=== PATIENT | male | born 1950 | race Caucasian/White ===

== ENCOUNTER 2016-10-27 13:00 | Inpatient (IN) | payer OTHER ==
[~2016-10-27] VITALS: Ht 170.2 cm; Wt 64.0 kg
--- NOTE | ~2016-10-27 | DS ---
Unit #: [id number] #: [id number] Patient: JOHANNA AARON [id number] [address] [address] [id number] I MR#: [id number] NAME: JOHANNA AARON. ROOM: [facility] Age: 66 Sex: M Admission Date: 10/27/2016 : 1950 Discharge Date: 10/29/2016 Attending Physician: Jono Walker M.D. Primary Care Physician: [facility]. DISCHARGE SUMMARY DISCHARGE DIAGNOSES 1. Systemic inflammatory response syndrome. 2. Hypotension. 3. Urinary retention. 4. Acute kidney injury. 5. Metabolic acidosis. HOSPITAL COURSE The patient is a 66-year-old male who [facility] to a syncopal episode. Apparently the patient had been at work on the day of presentation and had a fainting spell and his blood pressure was noted to be 68 systolic. He was brought to the emergency room and was noted to have a creatinine of 10, potassium of 5.4. The patient underwent CT of the abdomen which failed to reveal any significant abnormality so he then had an ultrasound of the kidneys bilaterally which showed abnormal distention of the bladder. Calculated volume was 1.5 L. Therefore, it was felt that the likely cause of the patient's acute kidney injury was obstruction. Coude catheter was placed and patient diuresed well. His creatinine fell from 10.4 the first day to 4.5 to 1.2 on the day of discharge. Discussion with the patient reveals that he had actually ran out of his Flomax, had not been taking it. He states that this was because he felt like followup physician visits were unnecessary so he wasn't making them. At this time, I am going to be discharging the patient home with a catheter in place and instructions to follow up with his urologist, Dr. Ho. DISCHARGE MEDICATIONS 1. Flomax 0.4 mg at bedtime. 2. Gabapentin 800 mg p.o. t.i.d. 3. Glucophage 1000 mg p.o. daily. 4. Zofran 4 mg p.o. b.i.d. as needed. 5. Coreg 12.5 mg p.o. b.i.d. 6. Pramipexole 0.125 mg p.o. in the evening. 7. Hydrochlorothiazide 25 mg daily. 8. Lipitor 80 mg daily. 9. Zestril 20 mg daily. 10. Advil 600 mg p.o. b.i.d. as needed for fever or mild pain. 11. Protonix 40 mg daily. 12. Amaryl 2 mg daily. FOLLOWUP Unit #: [id number] #: [id number] Patient: JOHANNA AARON As mentioned above, the patient will follow up with Dr. Dillon Ho in clinic this week. Dictated by... Matt Boudreaux M.D. JOSÉ ANTONIO/gorge TD: 10/30/2016 06:00 JOB #: [id number] CC: Dillon Ho M.D. DISCHARGE SUMMARY Page 1 of 1 X Matt Boudreaux MD X DISCHARGE SUMMARY
--- NOTE | ~2016-10-27 | HP ---
Unit #: [id number] #: [id number] Patient: JOHANNA AARON [id number] [address] [address] [id number] I MR#: [id number] NAME: JOHANNA AARON. ROOM: 06693 Age: 66 Sex: M Admission Date: 10/27/2016 : 1950 Attending Physician: Radha Walker M.D. Primary Care Physician: [facility], [facility]. HISTORY AND PHYSICAL CHIEF COMPLAINT A syncopal episode. HISTORY OF PRESENT ILLNESS The patient is a 66-year-old male with a history of coronary artery disease, hypertension, hyperlipidemia, diabetes, BPH, nephrolithiasis, peptic ulcer disease and alcohol abuse, brought to the emergency room with the recurrent falls. The patient was at work this morning and had a fainting episode with the systolic blood pressure in the range of 68. The patient was brought to the emergency room for the above reasons. The patient states that the patient was feeling sick for the last few days and was seen at the [facility] for the nausea and vomiting. The patient was given the antinausea medication but patient has a poor intake associated with the nausea and vomiting and not able to hold down anything. The patient denies taking any new medications. The patient was found to be in acute kidney injury with a creatinine of 10 and potassium of 5.4 and is being admitted for the above reasons. The patient required 2 L of the fluid and the low blood pressure responded to the IV fluids and patient did not receive any pressors in the emergency room. PAST MEDICAL HISTORY 1. History of altered mental status attributed to an intentional methadone overdose. 2. Coronary artery disease. 3. Hypertension. 4. Hyperlipidemia. 5. Chronic pain. 6. Diabetes. 7. BPH. 8. Nephrolithiasis. 9. Peptic ulcer disease. PAST SURGICAL HISTORY 1. Hernia repair. 2. Appendectomy. 3. Cardiac catheterization. SOCIAL HISTORY The patient is a daily drinker. He drinks four to five 12 ounce beers daily. He denies tobacco. He works at [employer]. FAMILY HISTORY Notable for prostate cancer Unit #: [id number] #: [id number] Patient: JOHANNA AARON ALLERGIES No known drug allergies. HOME MEDICATIONS Patient is on Glucophage, Protonix, Coreg, Amaryl, hydrochlorothiazide, lisinopril, gabapentin, Advil, Zofran, Lipitor. REVIEW OF SYMPTOMS Positive for headache. Positive for nausea and vomiting. Negative for chest pain. Negative for shortness of breath. Other systems reviewed and are none. PHYSICAL EXAMINATION GENERAL APPEARANCE: On examination patient is lying on a bed, not in acute distress. VITAL SIGNS: Temperature is 98.3, pulse 64, respiratory rate 16, blood pressure 71/45, sating 99% at room air. HEENT: Head atraumatic and normocephalic. Pupils equal, round and reacting to light and accommodation. Dry mucous membrane. NECK: Supple. LUNGS: Decreased air entry at the bases. HEART: Regular rate and rhythm. ABDOMEN: Soft, positive bowel sounds. EXTREMITIES: No cyanosis. No clubbing. NEUROLOGIC: Awake and alert. DIAGNOSTIC STUDIES LABORATORY DATA: Glucose 227, WBC 11.7, hemoglobin 12.5, hematocrit 37, neutrophils 81.2, troponin less than 0.05, lactic acid is 1.1, INR is 1.1, sodium 129, potassium 5.4, chloride 86, bicarb 19, glucose 216, BUN 140, creatinine 10.4, calcium 8.9, AST 8, ALT 10, albumin 4.8. IMAGING: CT of the abdomen shows no acute intraabdominal pathology. Chest x-ray is negative. ASSESSMENT 1. Syncopal episode. 2. Acute kidney injury. 3. Hyponatremia. 4. Hypokalemia. PLAN Plan to admit the patient to the inpatient with the telemetry. Patient will have a renal consult for acute kidney injury, hyperkalemia and hyponatremia. Continue with the low dose sliding scale and Accu-Cheks a.c. and h.s. and repeat the labs again in the morning and check the UA with the culture and urine toxicology and avoid the nephrotoxic agents and hold the Glucophage and the Amaryl and further recommendations will follow. Dictated by Radha Walker M.D. Unit #: [id number] #: [id number] Patient: JOHANNA AARON SHAE/marito TD: 10/27/2016 16:57 JOB #: [id number] HISTORY AND PHYSICAL Page 1 of 1 X RADHA WALKER MD HISTORY AND PHYSICAL
--- NOTE | ~2016-10-27 | EKG ---
PATIENT: JOHANNA AARON UNIT #: [id number] Ventricular Rate: 57 BPM Atrial Rate: 57 BPM P-R Interval: 206 ms QRS Duration: 102 ms Q-T Interval: 454 ms QTC Calculation(Bezet): 441 ms P [place]: 72 degrees Calculated R [place]: 62 degrees Calculated T [place]: 31 degrees Diagnosis Line: Sinus bradycardia Diagnosis Line: Otherwise normal ECG Diagnosis Line: When compared with ECG of 19-NOV-2015 12:58, Diagnosis Line: Vent. rate has decreased BY 37 BPM Diagnosis Line: Confirmed by AYSE PHILLIPS MD ([id number]) on 11/01/2016 Diagnosis Line: 7:32:44 AM INTERPRETING MD: JACQUELINE JONES
--- NOTE | ~2016-10-27 | CO ---
Unit #: [id number] #: [id number] Patient: JOHANNA AARON [id number] [place] [address] [facility]. [place], [place] [address] [id number] I MR#: [id number] NAME: JOHANNA AARON. ROOM: 554 Age: 66 Sex: M Admission Date: 10/27/2016 : 1950 Attending Physician: Jono Walker M.D. Primary Care Physician: [facility]. CONSULTATION REPORT Patient of Dr. Walker. REASON FOR CONSULTATION Increased creatinine. HISTORY OF PRESENT ILLNESS Mr. Aaron is a 66-year-old male, who presented to the emergency department after graying out and falling. He had been feeling unwell for a few days predominantly with episodic lower abdominal pain progressing to nausea with vomiting. There was no bloody vomitus. He does have a history of peptic ulcer disease, but has not had recent symptoms related to that and denies diarrhea or bloody bowel movements. He has been dry mouth and thirsty. He has not been taking p.o. fluid or food well. Appetite and taste changes have been noted. He has been having regular unsteadiness when up, but not completely passing out at any time. However, he has been stumbling about in the past few days. He denies use of nonsteroidals, but his home medicine list includes Advil/Motrin (he specifically denied taking Advil, Aleve, or ibuprofen on questioning). He says urine output was normal up until yesterday morning when he first arrived at work, he passed urine as he usually does; however, he did not pass any urine after that until presenting to hospital. He denies sensation of suprapubic discomfort or sensation of incomplete emptying or difficulty emptying his bladder and denies urgency. He is aware of prior prostate disease, has seen the urologist in the past and has in the past been treated with Flomax, but has not been on it recently. He denies dysuria or hematuria. He denies fevers or chills. HOME MEDICATIONS Include gabapentin, Advil, Motrin, Zofran, Lipitor, pramipexole, carvedilol, Amaryl, hydrochlorothiazide, Zestril, Glucophage, and Protonix. He denies red urine or unusual muscle pain with his Lipitor. PAST MEDICAL HISTORY Notable for hypertension, diabetes mellitus, history of TIA, history of peptic ulcer disease, and history of renal stones with no recent symptomatic stones. He is aware of BPH as well. He denies history of ND. There is chart history of coronary disease. (In 2004, cardiac catheterization showed normal coronaries with mild to moderate global hypokinesis. He had subsequent presentation for chest pain in 2011. In 2012, LVEF was 50% to 55%. In 2011, exercise Cardiolite was negative for stress-induced ischemia, but did demonstrate a small fixed defect inferiorly. He again had normal Cardiolite stress test in 2014 with ejection fraction of 57%; fixed inferior apical defect was again seen). Unit #: [id number] #: [id number] Patient: JOHANNA AARON SOCIAL HISTORY He denies smoking. He does drink alcohol. He chews tobacco daily. He still works at [employer] and was working as recently as yesterday. FAMILY HISTORY Negative for end-stage renal disease. No other kidney disease as far as he is aware. REVIEW OF SYSTEMS Twelve component complete system review was additionally positive for recent sneezing, which he describes allergies. He has not had increased shortness of breath or productive cough. Remainder of complete system review is negative or noncontributory except as noted above. PHYSICAL EXAMINATION VITAL SIGNS: Includes blood pressure in the ER earlier on presentation of 71/45, and now 95 to 109 over 49 to 60 with IV fluids. GENERAL: He is awake, alert, and fluently interactive locally. Conjunctiva are pink. There is no bloody discharge. Oral mucous membranes are mildly dry. NECK: Reveals no thyromegaly and normal jugular venous pressure. No cervical, supraclavicular, or axillary adenopathy is notable. SKIN: Warm and dry with markedly diminished turgor. LUNGS: Clear with moderate equal air movement. HEART: Reveals no rub. No S3. ABDOMEN: Soft and nontender with no masses. Had no organomegaly. : Includes no CVA tenderness. No bladder distention. Olivo catheter is in place draining clear iris urine. EXTREMITIES: Reveal IV fluids infusing. There is no pitting pretibial edema. VASCULAR: Includes no flank bruits. Right pedal pulses are normal. NEUROLOGIC: Includes no asterixis. DIAGNOSTIC STUDIES LABORATORY RESULTS: Includes urinalysis showing 1+ protein, trace blood, negative leukocytes, and no bacteria. Urine sodium and creatinine were ordered and are pending. Admission BUN was 140 with creatinine 10.4 after IV fluids and placement of Olivo catheter (bladder scan was ordered and done showing 1 L of retained urine). BUN is 108; creatinine is 4.5; potassium of 5.4 on admission, has improved to 4.4; CO2 of 19 on admission, has improved to 22; calcium is 8.4. White count 6000, hemoglobin 12, platelet count 282,000. IMAGING STUDIES: CT scan shows no hydronephrosis, it did show nonobstructing renal stones. ASSESSMENT 1. Acute kidney injury. Obstructive from bladder outlet obstruction plus prerenal with hypotension, volume depletion, and impaired renal compensation on JOCELYN inhibitor and apparently nonsteroidal. He is on Lipitor, but ordered CPK not mentioned above was 95 excluding rhabdomyolysis. There is no evidence of renal inflammation on urinalysis. He does have stones, but they are nonobstructive and not related to the current acute kidney injury. 2. Hyperkalemia secondary to decreased GFR and JOCELYN inhibitor. 3. Benign prostatic hypertrophy with acute bladder outlet obstruction. 4. Nephrolithiasis, nonobstructive. Unit #: [id number] #: [id number] Patient: JOHANNA AARON 5. Hypertension, over controlled with volume depletion and antihypertensives abruptly being held. 6. Diabetes mellitus. Holding Glucophage in the presence of decreased GFR. 7. History of transient ischemic attack. 8. History of peptic ulcer disease. PLAN Holding lisinopril/hydrochlorothiazide and Lipitor. Would avoid Advil and all other nonsteroidals in the future. Would avoid diuretics for now. No objection to rechallenge with JOCELYN or ARB after recovery of renal function at baseline. Have restarted Flomax. Agree with Urology consultation. Olivo catheter for now. He is on diet for hyperkalemia and we may be able to remove that after further recovery of GFR with Olivo catheter drainage. Thank you for letting me to see Mr. Aaron. Dictated by... Rc Zamora M.D. REL/modl TD: 10/29/2016 00:07 JOB #: [id number] CONSULTATION REPORT Page 1 of 1 X Rc Zamora MD CONSULTATION REPORT
--- NOTE | ~2016-10-27 | CR72 ---
[facility] A Service of [facility] & [facility] RADIOLOGY TEXT RESULTS PATIENT: JOHANNA AARON LOCATION: [place] [address] : [birth year] UNIT #: [id number] AGE: [address]: RADHA WALKER MD SEX: M ORDER DR: [id number] [facility] [address]. [place], [place] [address] [id number] I MR#: [id number] Acc #: [id number] NAME: JOHANNA AARON : 1950 SEX: M STUDY DATE/TIME: 10/27/2016 14:03 UNIT: [facility] ROOM: [facility] STUDY DESCRIPTION: CR Chest Single View Portable Attending Physician: Radha Walker M.D. Ordering Physician: Santy Ko M.D. Primary Care Physician: [facility], [facility]. MEDICAL IMAGING REPORT This report is preliminary unless electronic signature is present EXAM Portable chest x-ray, 10/27/2016. HISTORY Syncope. Irregular heartbeat, TIA, heart cath, hypotension, syncope. REPORT AP radiograph of the chest is presented. COMPARISON 11/27/2015. FINDINGS Heart is normal in size. The lungs are well inflated. No acute pulmonary disease, pleural effusion or pneumothorax. No suspicious nodule. Stable calcified granuloma left lung base. Degenerative changes in the spine. No acute-appearing bony abnormality. Dictated by... Bam Leiva M.D. THIS IS AN ELECTRONICALLY VERIFIED REPORT Bam Leiva M.D. at 10/27/2016 10:46 PM Brenden TD: 10/27/2016 20:35 JOB #: [id number] MEDICAL IMAGING REPORT Page 1 of 1 COPY
--- NOTE | ~2016-10-27 | US77 ---
[facility] A Service of [facility] & [facility] RADIOLOGY TEXT RESULTS PATIENT: JOHANNA AARON LOCATION: [facility] [id number] : [birth year] UNIT #: [id number] AGE: [address]: RADHA WALKER MD SEX: M ORDER DR: [id number] [facility] [address] [place], [place] [address] [id number] I MR#: [id number] Acc #: [id number] NAME: JOHANNA AARON. : 1950 SEX: M STUDY DATE/TIME: 10/27/2016 18:38 UNIT: [facility] ROOM: [facility] STUDY DESCRIPTION: US Kidney Bilateral Complete Attending Physician: Radha Walker M.D. Ordering Physician: Last Hernandez M.D. [facility] IMAGING REPORT This report is preliminary unless electronic signature is present EXAM Ultrasound kidney bilateral complete, low urine output, 1 day duration. Acute kidney injury. TECHNIQUE Real-time ultrasonography bilateral kidneys performed. COMPARISON Comparison to a CT examination from same date. FINDINGS Right kidney measures 9.89 cm in greatest length. There is no hydronephrosis or nephrolithiasis. No cystic or solid mass lesion and no perinephric fluid collection. Visualized adjacent liver unremarkable. The left kidney measures 10.69 cm in greatest length. There is no hydronephrosis. The tiny sand-like nonobstructing calculi in the mid left kidney seen on today's CT examination not evident on ultrasound. No cystic or solid mass lesion and no perinephric fluid collection. The urinary bladder is distended. It measures up to 17 cm in greatest diameter. Calculated prevoid volume of 1.49 liters. I see no obstructing process. The bladder appears more distended than on the earlier CT examination when it measured up to 10.7 cm in greatest length. The appearance could be physiologic in nature. Correlate with any clinical indications of urinary retention. Consider postvoid imaging for further assessment. Consider decompression with Olivo catheter if patient unable to void to completion. IMPRESSION 1. Bilateral kidneys normal in appearance on ultrasound. The tiny nonobstructing calculi seen on today's CT examination in the mid left kidney are not apparent on ultrasound. 2. Abnormal distension of the urinary bladder. It measures up to 17 cm [facility] A Service of [facility] RADIOLOGY TEXT RESULTS PATIENT: JOHANNA AARON LOCATION: [place] [address] : [birth year] UNIT #: [id number] AGE: [address]: RADHA WALKER MD SEX: M ORDER DR: in greatest diameter and the calculated volume is 1.49 L. I see no obstructing process. The bladder is more distended than on earlier CT examination. No focal bladder wall abnormality is seen. Please correlate with any clinical indications of urinary retention. Consider further evaluation with postvoid imaging. If the patient is not able to void to completion, consider bladder decompression with Olivo catheter. Dictated by... Bam Leiva M.D. THIS IS AN ELECTRONICALLY VERIFIED REPORT Bam Leiva M.D. at 10/28/2016 2:37 PM JUDD/grace TD: 10/28/2016 14:27 JOB #: [id number] MEDICAL IMAGING REPORT Page 1 of 1 COPY
--- NOTE | ~2016-10-27 | CT4 ---
[facility] A Service of [facility] & [facility] RADIOLOGY TEXT RESULTS PATIENT: JOHANNA AARON LOCATION: [place] [address] : [birth year] UNIT #: [id number] AGE: [address]: RADHA WALKER MD SEX: M ORDER DR: [id number] [facility] [address]. [place], [place] [address] [id number] I MR#: [id number] Acc #: [id number] NAME: JOHANNA AARON : 1950 SEX: M STUDY DATE/TIME: UNIT: [facility] ROOM: [facility] STUDY DESCRIPTION: CT Abd and Pelv Wo Cont Attending Physician: Radha Walker M.D. Ordering Physician: Santy Ko M.D. Primary Care Physician: [facility] IMAGING REPORT This report is preliminary unless electronic signature is present EXAM CT abdomen and pelvis without contrast 10/27/2016 1342 hours HISTORY 66-year-old man with history of hypertension and diabetes complaining of abdominal pain today with hypotension. Lower abdominal tenderness on exam today. COMPARISON CT abdomen 05/27/2014 TECHNIQUE Helical noncontrasted images were obtained from the lung bases through the pubic symphysis. No oral or intravenous contrast was administered. Sagittal and coronal reconstructions were performed. Total exam DLP 744 mGy - cm. This CT exam was performed with one or more of the following radiation dose reduction techniques: automatic exposure control, adjustment of mA and/or kV according to patient size, and iterative reconstruction. FINDINGS Images through the lung bases are clear of acute densities. There is a calcified granuloma in the lingular segment of the left upper lobe without change. There is no pleural effusion. The distal esophagus is normal. Noncontrasted images through the abdomen demonstrate a normal appearance to the liver, spleen, pancreas. The gallbladder is mildly distended. There may be 2 tiny stones in the neck of the gallbladder but there is no gallbladder wall thickening or bile duct dilatation. The adrenal glands are normal. The kidneys demonstrate no mass or obstruction. There are punctate hyperdensities in the posterior mid-left kidney likely nonobstructing stones. There is no ureterectasis or ureteral calculus. There is atherosclerotic calcification of the abdominal aorta which is STS[facility] A Service of [facility] & [facility] RADIOLOGY TEXT RESULTS PATIENT: JOHANNA AARON LOCATION: [facility] [phone] : [birth year] UNIT #: [id number] AGE: [address]: RADHA WALKER MD SEX: M ORDER DR: normal in caliber. There is fluid and debris distending the stomach. No gastric wall thickening is seen. The small bowel is unopacified but normal in appearance. The terminal ileum is normal. The appendix is absent. There is dense material within the contents of the cecum and ascending colon most likely related to medication ingestion. There is no definite colonic wall thickening. The distal colon demonstrates a few diverticula in the descending colon. The rectosigmoid colon is decompressed and nonobstructed. Lumbar spine is normally aligned with bridging osteophytes throughout. There is disc height loss at L5-S1. Findings appears similar to 2015. IMPRESSION 1. No acute abnormalities in the abdomen or pelvis. There may be 2 tiny stones in the gallbladder similar to prior study but no gallbladder wall thickening is seen. There is no bile duct dilatation. Stomach is distended with fluid and debris. No definite wall thickening is seen. 2. There is postop and ectopy change. There is no small bowel obstruction or colonic obstruction. There is very dense material within the cecum and ascending colon perhaps related to medication ingestion. 3. Punctate nonobstructing stones in the mid pole left kidney. No ureteral calculus seen. 4. The bladder is normal. 5. Stable degenerative changes of the lumbar spine as compared to CT 05/27/2014. Dictated by... Molly Nicole M.D. THIS IS AN ELECTRONICALLY VERIFIED REPORT Molly Nicole M.D. at 10/27/2016 9:21 PM SMM/josette TD: 10/27/2016 19:44 JOB #: [id number] MEDICAL IMAGING REPORT Page 1 of 1 COPY
[~2016-10-27 13:00] MED LIST: ACETAMINOPHEN650 M3 PO; AGGRENOX PO; AGGRENOX1 CAP PO; AMARYL PO; AMARYL2 MG PO; ASPIRIN81 MG PO; ATORVASTATIN CA80 MG PO; B COMPLEX1 TAB PO; CARVEDILOL6.25 MG PO; CEPHALEXIN500 M1 PO; CIPRO PO; CLOPIDOGREL75 MG PO; COREG PO; COREG3.125 MG PO; COREG6.25 MG PO; DIFLUCAN200 MG PO; FLOMAX0.4 M1 PO; FLOMAX0.4 MG; FLOMAX0.4 MG PO; GABAPENTIN800 MG PO; GLIMEPIRIDE2 MG PO; GLUCOTROL; HYDROCODON-ACE1 EAC4 PO; HYDROCODONE-APA1 T30; HYDROCODONE/APAP PO; IBUPROFEN100 MG PO; JANUMET 50-1,1 UDTAB PO; JANUVIA PO; KADIAN PO; KADIAN50 MG PO; LANTUS SOLOSTAR3 ML SQ; LEVAQUIN PO; LIORESAL10 MG PO; LIPITOR; LIPITOR20 MG PO; LIPITOR40 MG PO; LIPITOR80 MG PO; LISINOPRIL PO; LISINOPRIL10 MG PO; LISINOPRIL20 MG PO; LORTAB 10-5001 EACH PO; METFORMIN HCL500 M1 PO; METFORMIN PO; MIRAPEX PO; MIRAPEX0.25 MG PO; MOBIC PO; MORPHINE SULFAT15 M3 PO; MORPHINE SULFAT20 MG PO; MULTI-VITAMIN1 EAC1 PO; NEURONTIN PO; NEURONTIN800 MG PO; OXYCODONE HCL30 MG PO; OXYCONTIN30 MG PO; PATIENT'S PHARMACY; PLAVIX PO; REGLAN PO; REGLAN10 MG PO; SKELAXIN PO; TRAMADOL HCL50 M2 PO; TRILIPIX135 MG PO; TRILIPIX45 MG PO; VICODIN PO; ZOCOR PO
[2016-10-27 13:42] LABS: BASOPHIL% 0.3 % (0-2.5); EOSINOPHIL# 0.1 X10e3 (0-0.7); EOSINOPHIL% 0.9 % (0.0-7.0); HEMOGLOBIN 12.5 gm/dL (13.0-16.0); LYMPHOCYTE# 1.2 X10e3 (1.0-3.5); LYMPHOCYTE% 10.4 % (17.0-45.0); MEAN CELL VOLUME 89.8 FL (83-96); MEAN CORPUSCULAR HEMOGLOBIN 30.3 PG (28-34); MEAN CORPUSCULAR HGB CONC 33.8 g/dL (30-36); MEAN PLATELET VOLUME 9.4 FL (6.5-11.5); MONOCYTE# 0.8 X10e3 (0-1.0); MONOCYTE% 7.2 % (3.0-12.0); NEUTROPHIL# 9.5 X10e3 (1.5-7.1); NEUTROPHIL% 81.2 % (40-75); PLATELET COUNT 349 X10e3 (140-420); RED BLOOD COUNT 4.12 X10e (3.90-5.60); RED CELL DISTRIBUTION WIDTH 14.3 % (11.0-15.5); WHITE BLOOD COUNT 11.7 X10e3 (4.0-10.5)
[2016-10-27 13:45] LABS: DIFF IND NO
[2016-10-27 13:49] LABS: POC - CKMB 3.3 ng/mL (0.0-7.9); POC - TROPONIN <0.05 ng/mL (<=0.05)
[2016-10-27 13:54] LABS: INR 1.1; PROTHROMBIN TIME (PATIENT) 11.8 SECONDS (10.0-11.7)
[2016-10-27 14:14] LABS: ALBUMIN SERUM 4.8 g/dL (3.5-5.0); BILIRUBIN, DIRECT 0.1 mg/dL (0.0-0.2); BILIRUBIN,INDIRECT 0.8 mg/dL (0.0-0.9); BILIRUBIN,TOTAL 0.9 mg/dL (0.2-2.0); CALCIUM SERUM 8.9 mg/dL (8.4-10.2); CREATININE SERUM 10.4 mg/dL (0.6-1.4); GLOM FILT RATE Estimated 4.6 mL/min (>60); POTASSIUM 5.4 mmol/L (3.5-5.1); PROTEIN TOTAL SERUM 8.1 g/dL (6.0-8.3)
[2016-10-27 14:15] LABS: BUN/CREATININE RATIO 13.46
[2016-10-27] MEDS ORDERED: IBUPROFEN PO (14:21)
[2016-10-27] MEDS ORDERED: PATIENT'S PHARMACY (14:21)
[2016-10-27] MEDS ORDERED: ZOFRAN PO (14:21)
[2016-10-27] MEDS ORDERED: GABAPENTIN400 M2 PO (14:21)
[2016-10-27] MEDS ORDERED: LIPITOR PO (14:21)
[2016-10-27] MEDS ORDERED: LISINOPRIL PO (14:22)
[2016-10-27] MEDS ORDERED: AMARYL2 MG PO (14:22)
[2016-10-27] MEDS ORDERED: PRAMIPEXOLE0.125 MG PO (14:22)
[2016-10-27] MEDS ORDERED: COREG12.5 MG PO (14:22)
[2016-10-27] MEDS ORDERED: HYDROCHLOROTHIA25 MG PO (14:22)
[2016-10-27] MEDS ORDERED: METFORMIN PO (14:22)
[2016-10-27] MEDS ORDERED: PROTONIX PO (14:23)
[2016-10-27 15:21] LABS: POC - CREATININE 5.14 mg/dL (0.64-1.27)
[2016-10-27 23:26] LABS: URINE SOURCE CLEAN CATCH
[2016-10-27 23:31] LABS: URINE APPEARANCE CLEAR; URINE BILIRUBIN NEG (NEG); URINE BLOOD TRACE (NEG); URINE COLOR YELLOW; URINE GLUCOSE NEG (NEG); URINE KETONE NEG (NEG); URINE LEUKOCYTE ESTERASE NEG (NEG); URINE NITRATE NEG (NEG); URINE PROTEIN 1+ (NEG); URINE SPECIFIC GRAVITY 1.015 (1.003-1.035); URINE UROBILINOGEN 0.2 MG/DL (NEG)
[2016-10-27 23:33] LABS: URINE BACTERIA AUWI NEG (NEGATIVE); URINE SQUAMOUS EPITHELIAL CELL NONE SEEN /[HPF]; UWBCS1 AUWI 0-2 (0-5)
[2016-10-27 23:34] LABS: CULTURE INDICATED? NO
[2016-10-27 23:42] LABS: AMPHETAMINE NEG (NEG); BARBITURATES NEG (NEG); BENZODIAZEPINES NEG (NEG); COCAINE NEG (NEG); MARIJUANA NEG (NEG); OPIATES NEG (NEG); TRICYCLIC ANTIDEPRESSANTS NEG (NEG); U METHADONE NEG (NEG)
[2016-10-28 07:12] LABS: HEMATOCRIT 36.2 % (38.0-50.0); HEMOGLOBIN 12.1 gm/dL (13.0-16.0); MEAN CELL VOLUME 90.4 FL (83-96); MEAN CORPUSCULAR HEMOGLOBIN 30.1 PG (28-34); MEAN CORPUSCULAR HGB CONC 33.3 g/dL (30-36); MEAN PLATELET VOLUME 9.6 FL (6.5-11.5); RED BLOOD COUNT 4.01 X10e (3.90-5.60); RED CELL DISTRIBUTION WIDTH 13.9 % (11.0-15.5)
[2016-10-28 08:14] LABS: ALBUMIN SERUM 4.3 g/dL (3.5-5.0); CALCIUM SERUM 8.4 mg/dL (8.4-10.2); GLOM FILT RATE Estimated 12.7 mL/min (>60); PHOSPHOROUS 5.6 mg/dL (2.5-4.6); POTASSIUM 4.4 mmol/L (3.5-5.1)
[2016-10-28 08:15] LABS: CREATININE SERUM 4.5 mg/dL (0.6-1.4)
[2016-10-28 20:29] LABS: CREATININE,RANDOM URINE 61 mg/dL; SODIUM URINE RANDOM 77 mmol/L
[2016-10-29 06:31] LABS: BUN/CREATININE RATIO 46.66; CALCIUM SERUM 8.9 mg/dL (8.4-10.2); GLOM FILT RATE Estimated 62.7 mL/min (>60); POTASSIUM 5.3 mmol/L (3.5-5.1)
[2016-10-29 06:32] LABS: CREATININE SERUM 1.2 mg/dL (0.6-1.4)
[2016-10-29] MEDS ORDERED: FLOMAX0.4 M1 PO (14:55)
== END 2016-10-29 18:20 | disposition home or self-care (01) | DRG 725 ==
LOC: CED 13:00 → CEDOF 15:30 → C5B 15:30 → CED 16:16 → CEDOF 16:16 → C5B 17:22 → CEDOF 17:22 → C5B 10-29 18:20
PROVIDERS: Emergency Medicine; Internal Medicine; Internal Medicine Nephrology
DX: N40.1 Benign prostatic hyperplasia with lower urinary tract symptoms (principal); R65.11 Systemic inflammatory response syndrome (SIRS) of non-infectious origin with acute organ dysfunction; N17.9 Acute kidney failure, unspecified; I95.9 Hypotension, unspecified; E87.2 Acidosis; E87.1 Hypo-osmolality and hyponatremia; N13.8 Other obstructive and reflux uropathy; I25.10 Atherosclerotic heart disease of native coronary artery without angina pectoris; I10 Essential (primary) hypertension; E78.5 Hyperlipidemia, unspecified; E11.9 Type 2 diabetes mellitus without complications; N40.0 Benign prostatic hyperplasia without lower urinary tract symptoms; Z87.442 Personal history of urinary calculi; Z87.11 Personal history of peptic ulcer disease; F10.10 Alcohol abuse, uncomplicated; Z91.81 History of falling; Z90.49 Acquired absence of other specified parts of digestive tract; Z80.42 Family history of malignant neoplasm of prostate; Z79.84 Long term (current) use of oral hypoglycemic drugs; F17.290 Nicotine dependence, other tobacco product, uncomplicated; N20.0 Calculus of kidney; E87.5 Hyperkalemia
CPT/HCPCS: 36415; 71010; 74176; 76770; 80048; 80069; 80076; 80307; 81003; 82550; 82553; 82565; 82570; 82947; 83605; 84300; 84484; 85025; 85027; 85610; 87040; 90732; 93005; 94760; 96360; 97116; 97162; 97166; 99291; G0009; G8978-GP; G8979-GP; G8987-GO; G8988-GO; J1265; J1815

== ENCOUNTER 2016-11-10 10:49 | Inpatient (IN) | payer OTHER ==
[~2016-11-10] VITALS: Ht 170.2 cm; Wt 66.6 kg
--- NOTE | ~2016-11-10 | CO ---
Unit #: [id number] #: [id number] Patient: ROLANDO AARON [id number] [address] [address] [id number] I MR#: [id number] NAME: ROLANDO AARON. ROOM: 302 Age: 66 Sex: M Admission Date: 11/10/2016 : 1950 Attending Physician: Matt Boudreaux M.D. Primary Care Physician: [facility]. Consultation Date: 11/10/2016 CONSULTATION REPORT REASON FOR CONSULTATION Renal insufficiency and hyperkalemia. Thank you very much for asking me to see this patient again in consultation. HISTORY OF PRESENT ILLNESS Mr. Rolando Aaron is a 66-year-old, male, who we saw in the hospital on 10/27/2016, where he came in with acute renal failure, creatinine was 10, apparently felt to have bladder outlet obstruction over several days. His creatinine went down to 1.2. He saw Dr. Ho in the hospital at that time as well. The patient was sent home on 10/29 and again her creatinine was down to 1.2. He presented here again today with complaints mainly of his left leg pain. He states no other symptoms of anything. He says he is taking his medications at home, that was prescribed upon discharge. He denies any shortness of breath, chest pain, nausea, or vomiting. He denies any urinary symptoms. Upon presentation, he was noted to have a potassium of 5.6, her bicarb of 19 with a BUN and creatinine of 47 and 2.9 with glucose of 234. PAST MEDICAL HISTORY He has a history of peptic ulcer disease, history of BPH, history of urinary retention, history of acute renal failure in the past, history of hypertension, history of diabetes mellitus, history of nephrolithiasis, and history of transient ischemic attack. SOCIAL HISTORY No smoking. No alcohol. He does chew tobacco. FAMILY HISTORY Negative for any kidney disease. MEDICATIONS Upon discharge included Advil p.r.n., lisinopril 20 mg a day, Protonix 40 mg a day, Glucophage 1 g twice a day, Flomax 0.4 mg a day, gabapentin 800 mg t.i.d., Zofran, Coreg 12.5 mg b.i.d., HCTZ 25 mg a day, and Amaryl daily. REVIEW OF SYSTEMS Actually negative except for pain in his left leg. He denies any headaches, dizziness, visual problems, sinus problems, cough, hemoptysis, sore throat, and difficulty swallowing. Denies any neck pain or neck stiffness. No chest pain, chest heaviness, or palpitations. He denies any shortness of breath. He denies any abdominal pain, nausea, vomiting, Unit #: [id number] #: [id number] Patient: ROLANDO AARON or diarrhea. Denies any urinary symptoms. He denies any lower extremity swelling. He denies any recent seizures, strokes, or skin rashes. PHYSICAL EXAMINATION GENERAL: He is alert and oriented. VITAL SIGNS: Temperature is 98.8, pulse 58 to 73, blood pressure 87 to 116 over 59 to 65. HEENT: Normocephalic and atraumatic. Pupils are equal, round, and reactive to light. Extraocular muscles are intact. Hearing appears to be normal. Mouth clear. No erythema. No exudate. NECK: Supple. No JVD. CARDIAC: Regular rate and without a rub. No S3 or S4. LUNGS: Clear bilaterally. No wheezes, rhonchi, or rales. ABDOMEN: Bowel sounds positive. Nontender. Soft. No masses. No hepatomegaly noted. EXTREMITIES: He has no lower extremity swelling. No evidence of any erythema on his left leg or signs of causes of pain. NEUROLOGIC: Appear to be intact with motor and sensory grossly. : Currently, has a Olivo catheter. This patient apparently had about 380 to 400 mL according to the nurse upon placement. SKIN: No rashes. DIAGNOSTIC STUDIES LABORATORY RESULTS: Sodium is 134, potassium 5.6, chloride is 105, bicarb is 19, BUN and creatinine 47 and 2.9 respectively, glucose 234, albumin is 3.7, calcium is 9. CPK and lactic acid are pending. Hemoglobin is 9.2, but it is down on 10/28 was 12.1[place] [address]; and platelet count 24047. UA shows specific gravity of 1.04. Nitrite positive, 2+ protein, 2 to 5 rbc's, too numerous to count wbc's, 4+ bacteria. Renal ultrasound on 10/27 was negative, although I think after Olivo was placed. His CT scan of the abdomen and pelvis showed a small left stone nonobstructing. ASSESSMENT AND PLAN 1. Hyperkalemia. The patient with increased potassium, most likely related to renal insufficiency, JOCELYN inhibitor, hyperglycemia, acidosis etc. Should improve with Olivo, IV fluids, and stopping these medications. We will check in the morning. We will start him on p.o. bicarbonate. The patient with non-elevated anion gap. I doubt if he has significant increased lactic acid level either from sepsis or from the Glucophage, but again anion-gap is not elevated at this time. 2. Acute kidney injury. Again, I think he probably has some mild urinary retention along with UTI, that is contributing to his renal insufficiency. It is unclear at this point in time if he was taking the lisinopril or HCTZ, but certainly his blood pressure is low and withhold all those medications for now and agree with IV fluids, agree with Olivo catheter. We will check renal ultrasound. We will await urinary culture. We will see what labs look like in the morning and determine what further workup and treatment may want to consider having Dr. Ho to see again. 3. Urinary tract infection, certainly agree with starting Rocephin. Await culture results. Blood and urine cultures are pending. 4. History of hypertension, blood pressure on the low side, although now it is 106 systolic, when I had seen him. I certainly agree with holding his antihypertensive medications and IV fluids at this time. 5. Diabetes mellitus. Again, I agree holding his Glucophage due to his acute renal failure. Again, lactic acid level is pending. Dictated by... Unit #: [id number] #: [id number] Patient: ROLANDO AARON M.D. WAD/jessica TD: 11/13/2016 04:57 JOB #: [id number] CONSULTATION REPORT Page 1 of 1 X Mehdi Mann MD X CONSULTATION REPORT
--- NOTE | ~2016-11-10 | US77 ---
[facility] A Service of [facility] RADIOLOGY TEXT RESULTS PATIENT: JOHANNA AARON LOCATION: [facility] : 50 UNIT #: [id number] AGE: [address]: Matt Boudreaux MD SEX: M ORDER DR: [id number] [place] [id number] [facility]. [place], [place] [address] [id number] MR#: [id number] Acc #: [id number] NAME: JOHANNA AARON. : 1950 SEX: M STUDY DATE/TIME: 11/11/2016 7:57 UNIT: [id number] PCU ROOM: [address] [place] [address] DESCRIPTION: US Kidney Bilateral Complete Attending Physician: Matt Boudreaux M.D. Ordering Physician: Ed Doctor [id number] [facility] Primary Care Physician: [facility], [facility]. MEDICAL IMAGING REPORT This report is preliminary unless electronic signature is present EXAM Renal sonogram HISTORY Acute kidney injury with sepsis for the past day TECHNIQUE Ultrasound evaluation was performed with grayscale and color flow imaging. FINDINGS The right kidney measures 10.3 x 5 cm. There is no evidence of hydronephrosis, mass or cyst. The left kidney measures 11.6 x 5.9 cm with no evidence of mass, cyst or hydronephrosis. No shadowing stones are seen. The bladder is collapsed around a Olivo catheter. No obvious bladder masses are noted. IMPRESSION Normal renal sonogram. No evidence of hydronephrosis. Dictated by... Rc Clark M.D. THIS IS AN ELECTRONICALLY VERIFIED REPORT Rc Clark M.D. at 11/12/2016 10:32 AM GILDARDO/kanwal TD: 11/12/2016 05:57 JOB #: [id number] [facility] A Service [facility] RADIOLOGY TEXT RESULTS PATIENT: JOHANNA AARON LOCATION: [facility] : 50 UNIT #: [id number] AGE: [address]: Matt Boudreaux MD SEX: M ORDER DR: MEDICAL IMAGING REPORT Page 1 of 1 COPY
--- NOTE | ~2016-11-10 | CO ---
Unit #: [id number] #: [id number] Patient: JOHANNA AARON [id number] [address] [address] [id number] I MR#: [id number] NAME: JOHANNA AARON. ROOM: 302 Age: 66 Sex: M Admission Date: 11/10/2016 : 1950 Attending Physician: Matt Boudreaux M.D. Primary Care Physician: [facility]. Consultation Date: 11/11/2016 CONSULTATION REPORT ATTENDING PHYSICIAN Dr. Jono Walker. REFERRING PHYSICIAN Dr. Barragan. REASON FOR CONSULTATION Moderately severe anemia. HISTORY Mr. Aaron is a very pleasant 66-year-old white gentleman, who has history of diabetic renal disease. Patient presented with history of left-sided leg pain along with fatigue. Upon admission, he was found to have acute kidney injury with a creatinine of 2.9 and potassium of 5.6. He was also found to have urinary tract infection with 3+ leukocyte esterase positive, 2+ protein, and 4+ bacteria. PAST MEDICAL HISTORY 1. History of diabetic renal disease with stage 3 renal disease. 2. History of hypertension. 3. Hyperlipidemia. 4. Benign prostatic hypertrophy. 5. Peptic ulcer disease. 6. Nephrolithiasis. 7. Coronary artery disease. 8. Previous history of methadone overdose. PAST SURGICAL HISTORY 1. Herniorrhaphy. 2. Appendectomy. 3. Heart catheterization. SOCIAL HISTORY Patient is a daily drinker. Drinks about four to five 12-ounce beers daily and does not smoke. 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 FAMILY HISTORY Significant for prostate cancer. ALLERGIES Morphine and Naproxen. HOME MEDICATIONS 1. Advil. Unit #: [id number] #: [id number] Patient: JOHANNA AARON 2. Motrin. 3. Lipitor. 4. Pramipexole. 5. Zofran. 6. Flomax. 7. Gabapentin. REVIEW OF SYSTEMS A detailed review of organ system does not reveal any recent weight loss. No history of fever, chills, or rigors. No history of headaches, seizures, chest pain, or syncope. No history of cough, expectoration, or hemoptysis. No history of dysuria, hematuria, pyuria. No history of focal seizures or extremity weakness. There is history of left leg pain. PHYSICAL EXAMINATION GENERAL: He is awake, alert, and oriented and appears clearly pale. VITAL SIGNS: His vital signs are stable with a temperature of 99.1. Pulse is 75 per minute, regular. Respiratory rate is 16. Blood pressure is 109/65. He weighs 150 pounds. His baseline weight is highly variable with 145-160 pounds in the past. HEENT: He has moderate pallor. There being no icterus, lymphadenopathy, or peripheral edema. CARDIOVASCULAR: Normal heart sounds. No murmurs. LUNGS: Auscultation over the lungs reveals normal breath sounds. Good air entry. ABDOMEN: Soft, nontender. Liver and spleen are not palpable. Bowel sounds are normal. DIAGNOSTIC STUDIES LABORATORY: Lab evaluation showed a baseline hemoglobin of 12 and admission hemoglobin of 9 which has dropped to 8 today. Red cell indices are normochromic, normocytic. White count and platelet count are normal. INR is 1.1. Serum chemistry shows a BUN and creatinine of 47 and 2.9 yesterday and 34 and 1.2 today. His albumin is 2.8. CLINICAL IMPRESSION Patient with anemia which is probably renal or of renal origin. He does not have any history of overt gastrointestinal bleed. It is noteworthy that patient was scheduled to have colonoscopy many years ago but never came back for followup. Therefore, will proceed with an upper endoscopy, push enteroscopy, and a colonoscopy all together in the next 24-48 hours after the prep. Pros and cons of procedure and potential risks and complications were discussed with the patient. He was reassured. Thank you for asking me to see this pleasant gentleman. I appreciate the consult. Dictated by... Aleks Jimenez/charisma TD: 11/13/2016 10:54 JOB #: [id number] CC: Jono Walker M.D. Unit #: [id number] #: [id number] Patient: JOHANNA AARON [facility] [place] Barragan M.D. CONSULTATION REPORT Page 1 of 1 X Glenroy Pelaez MD CONSULTATION REPORT
--- NOTE | ~2016-11-10 | DS ---
Unit #: [id number] #: [id number] Patient: JOHANNA AARON [id number] [address] [address] [id number] I MR#: [id number] NAME: JOHANNA AARON. ROOM: [facility] Age: 66 Sex: M Admission Date: 11/10/2016 : 1950 Discharge Date: 11/14/2016 Attending Physician: Matt Boudreaux M.D. Primary Care Physician: [facility]. DISCHARGE SUMMARY DISCHARGE DIAGNOSES 1. Urinary tract infection. 2. Benign prostatic hypertrophy. 3. Urinary retention. 4. Acute kidney injury. 5. Hypertension. HOSPITAL COURSE The patient is a 66-year-old male admitted November 10, 2016, secondary to urinary tract infection and urinary retention. The patient had been seen for a similar admission approximately two weeks prior. He had discharged with a Olivo catheter in place and was seen in followup by urology. The catheter was removed and the patient appeared to be urinating fine until the symptoms appeared. The patient was started on IV antibiotics and ultimately the patient's culture ultimately grew E. coli that was resistant to only ampicillin. Patient was ultimately switched to Omnicef. Given the patient's continued BPH, the patient's Flomax dosage was doubled and he seemed to respond well. Given some anemia, a GI consultation was placed and the patient was ultimately taken for colonoscopy given that he had failed to show up for scheduled colonoscopies in the past for a similar issue. At this time given no significant findings on colonoscopy, the patient is being discharged home. DISCHARGE MEDICATIONS 1. Flomax 0.8 mg p.o. nightly. 2. Neurontin 800 mg p.o. t.i.d. 3. Zofran 4 mg p.o. b.i.d. as needed for nausea. 4. Pramipexole 0.125 mg p.o. b.i.d. 5. Coreg 6.25 mg p.o. b.i.d. 6. Omnicef 400 mg p.o. b.i.d. x4 days. 7. Lipitor 80 mg p.o. daily. 8. Norvasc 5 mg daily. FOLLOWUP The patient should follow up with Dr. Ho for his BPH at his next regularly scheduled appointment. Unit #: [id number] #: [id number] Patient: JOHANNA AARON Dictated by... Aleks Ford/charisma TD: 11/15/2016 16:39 JOB #: [id number] DISCHARGE SUMMARY Page 1 of 1 X Matt Boudreaux MD X DISCHARGE SUMMARY
--- NOTE | ~2016-11-10 | OR ---
Unit #: [id number] #: [id number] Patient: JOHANNA AARON [id number] [address] [address] [id number] I MR#: [id number] NAME: JOHANNA AARON. ROOM: [facility] Date of Procedure: 11/13/2016 Admission Date: 11/10/2016 Surgeon: Glenroy Pelaez M.D. : 1950 Attending Physician: Matt Boudreaux M.D. Primary Care Physician: [facility] OPERATIVE REPORT PREOPERATIVE DIAGNOSES Anemia most likely from chronic gastrointestinal blood loss. Other possibilities include that of anemia of renal disease. PROCEDURES PERFORMED Upper gastrointestinal endoscopy and biopsy as well as colonoscopy with biopsies. POSTOPERATIVE DIAGNOSES For upper endoscopy: 1. The patient had grade 1 distal erosive esophagitis and the examination was otherwise normal up to third part of duodenum. Biopsies obtained from the deep descending duodenal folds to look for any evidence of partial villous atrophy or celiac disease. For colonoscopy: 1. Single sessile polyp in the mid descending colon, removed using cold biopsy forceps. 2. Scant sigmoid diverticulosis. 3. Small internal hemorrhoids. 4. Rest of the examination up to cecum and terminal ileum was normal. The quality of the prep was excellent. RECOMMENDATIONS The patient does not have any potential source of blood loss in the GI tract. A supportive treatment is indicated. We will restart on diabetic diet and can be discharged home from GI standpoint. SEDATION USED Procedure sedation. Total of 10 mg of Versed and 100 mcg of fentanyl was used throughout the procedure. DESCRIPTION OF PROCEDURE Following detailed explanation of the potential risks and complications of an upper endoscopy and colonoscopy namely perforation, bleeding, and complications related to sedation, the patient was brought to GI lab and laid in the left lateral decubitus position. Lubricated tip of the Olympus video upper endoscope was passed through bite block into the proximal esophagus under direct vision. The entire esophageal mucosa was examined. The patient was noted to have grade 1 distal erosive esophagitis. The scope was then advanced into the gastric cavity and the latter was insufflated. Mucosa of the fundus, body, and antrum was examined and appeared unremarkable. Pylorus was intubated with Unit #: [id number] #: [id number] Patient: AARON,JOHANNA W visualization of the duodenal bulb which was normal. The second and third part of duodenum were also normal. Biopsies obtained from the deep descending duodenal folds to look for any evidence of partial villous atrophy or celiac disease. Upon withdrawal and retroflexion, incisura, cardia, and greater curve examined and no additional findings noted. The scope was then withdrawn in the distal esophagus. The entire esophageal mucosa was examined all the way up to pharynx. No additional findings noted. The examination table was then turned by 180 degrees and the patient was positioned for a colonoscopy. A digital rectal examination was performed, which was normal. Lubricated tip of the Olympus video colonoscope was inserted through the anus and advanced under direct vision. The scope was advanced and passed up to sigmoid into descending colon. Scant small diverticula were noted in this area. The scope tip was then navigated all the way up to cecum with visualization of the ileocecal valve and the appendiceal orifice. Preparation was excellent with good visualization and photodocumentation was obtained. Last few inches of the terminal ileum also visualized after intubation of the ileocecal valve and appeared normal. Successive segments of the colonic mucosa were examined upon withdrawal and appeared unremarkable except for a single sessile polyp in the mid descending colon. This was diminutive and was removed using cold biopsy forceps. No additional polyps were noted. Other than the scant diverticula seen in the sigmoid, the patient was also noted to have small internal hemorrhoids at anal verge. The scope was then withdrawn. The patient returned to the recovery area. She tolerated the procedure without any postprocedure complications. Dictated by... Aleks Jimenez/jessica TD: 11/13/2016 19:01 JOB #: [id number] OPERATIVE REPORT Page 1 of 1 X Glenroy Pelaez MD X PROCEDURE OPERATIVE NOTE
--- NOTE | ~2016-11-10 | US85 ---
[facility] A Service of [facility] & [facility] RADIOLOGY TEXT RESULTS PATIENT: JOHANNA AARON LOCATION: [facility] 302-01 : [birth year] UNIT #: [id number] AGE: [address]: Matt Boudreaux MD SEX: M ORDER DR: [id number] [facility] [address] [facility]. [place], [place] [address] [id number] MR#: [id number] Acc #: [id number] NAME: JOHANNA AARON. : 1950 SEX: M STUDY DATE/TIME: 11/10/2016 11:52 UNIT: [facility] ROOM: [id number] STUDY DESCRIPTION: US LE Veins Unilat or Ltd Stdy Attending Physician: Jono Walker M.D. Ordering Physician: Ligia Meade M.D. Primary Care Physician: [facility]. MEDICAL IMAGING REPORT This report is preliminary unless electronic signature is present EXAM Left lower extremity venous Doppler. HISTORY Leg pain and swelling, left leg x2 weeks. TECHNIQUE Venous ultrasound examination of the left lower extremity was performed using grayscale, spectral Doppler and color flow Doppler imaging. FINDINGS The examination is negative. There is no evidence of left lower extremity deep venous thrombus from the groin to the lower calf. Visualized greater saphenous vein is also patent. IMPRESSION Negative examination. No evidence of left lower extremity DVT. Dictated by... Reggie Rosenthal M.D. THIS IS AN ELECTRONICALLY VERIFIED REPORT Reggie Rosenthal M.D. at 11/13/2016 4:50 PM Rosana TD: 11/10/2016 17:29 JOB #: [id number] MEDICAL IMAGING REPORT Page 1 of 1 COPY
--- NOTE | ~2016-11-10 | HP ---
Unit #: [id number] #: [id number] Patient: JOHANNA AARON [id number] [address] [address] [id number] MR#: [id number] NAME: JOHANNA AARON ROOM: Age: 66 Sex: M Admission Date: 11/10/2016 : 1950 Attending Physician: Ligia Meade M.D. Primary Care Physician: [facility]. HISTORY AND PHYSICAL CHIEF COMPLAINT Left leg pain. HISTORY OF PRESENT ILLNESS The patient is a 66-year-old male with a history of coronary artery disease, hypertension, hyperlipidemia, diabetes, BPH, nephrolithiasis, peptic ulcer disease and bladder outlet obstruction, recently discharged from the hospital on 10/29/2016. The patient presented to the emergency room complaining of left leg pain. The patient denies any trauma. The patient stated the pain has been gradually worsening since last week. Denies any fever or chills. The pain is mainly in the back of the calf muscles. The patient was found to have acute kidney injury with creatinine of 2.9 and potassium 5.6. The patient was also found to have a urinary tract infection with a 3+ leukocyte esterase, 2+ protein and 4+ bacteremia, urine WBCs innumerable. The patient is being admitted for the above reasons. The patient denies any fever, chills, nausea or vomiting. The patient was found to be hypotensive with a blood pressure running systolic in the 80s to 90s. PAST MEDICAL HISTORY 1. History of altered mental status to intentional methadone overdose. 2. Coronary artery disease. 3. Hypertension. 4. Hyperlipidemia. 5. Chronic pain. 6. Diabetes. 7. BPH. 8. Nephrolithiasis. 9. Peptic ulcer disease. PAST SURGICAL HISTORY 1. Hernia repair. 2. Appendectomy. 3. Cardiac catheterization. SOCIAL HISTORY The patient is a daily drinker. He drinks four to five 12-ounce beers daily. He denies tobacco use. He works at (1) . FAMILY HISTORY Notable for prostate cancer. ALLERGIES Morphine and naproxen. Unit #: [id number] #: [id number] Patient: JOHANNA AARON HOME MEDICATIONS 1. Gabapentin. 2. Flomax. 3. Zofran. 4. Advil. 5. Motrin. 6. Lipitor. 7. Pramipexole. REVIEW OF SYSTEMS Positive for leg pain. Denies any trauma. Denies any chest pain. Denies any nausea and vomiting. Denies any shortness of breath. Denies any dizziness. All other systems have been reviewed and all other systems are negative. PHYSICAL EXAMINATION GENERAL: The patient is lying on the bed, not in acute distress. VITALS: Temperature 98.8, pulse 73, respiratory rate 18, blood pressure 116/63. HEENT: Head atraumatic, normocephalic. Dry mucous membranes. NECK: Supple. LUNGS: Decreased air entry at the bases. HEART: Regular rate and rhythm. ABDOMEN: Soft. Positive bowel sounds. EXTREMITIES: The patient has tenderness at the back of the calf muscles. Denies any swelling. Denies any erythema. NEUROLOGIC: Alert, awake and oriented. No gross focal motor deficits. DIAGNOSTIC STUDIES LABORATORY: White blood cell count 11.2, hemoglobin 9.2, hematocrit 27.7, platelets 259, alcohol less than 5. Sodium 134, potassium 5.6, chloride 105, bicarb 19, glucose 234, BUN 47, creatinine 2.9, AST 12, ALT 12, albumin 3.7. Urinalysis shows 3+ leukocyte esterase, positive nitrates and 2-5 urine RBCs, innumerable WBCs, and 4+ urine bacteria. Urine drug screen is positive for methadone. CARDIOVASCULAR: EKG is pending. ASSESSMENT 1. Acute kidney injury. 2. Hyperkalemia. 3. Urinary tract infection. 4. Probable sepsis. 5. Hypotension. PLAN Admit the patient to the telemetry. Continue with IV antibiotics with Rocephin. Will have a renal consult, Dr. Zamora, he has seen in the past. Repeat renal ultrasound. Repeat the labs again in the morning. Continue the sepsis protocol. Further recommendations will follow. Dictated by Aleks Alfonso/grace Unit #: [id number] #: [id number] Patient: JOHANNA AARON TD: 11/10/2016 16:06 JOB #: [id number] HISTORY AND PHYSICAL Page 1 of 1 X RADHA WILSON MD HISTORY AND PHYSICAL
[~2016-11-10 10:49] MED LIST changes: +COREG12.5 MG PO; +GABAPENTIN400 M2 PO; +HYDROCHLOROTHIA25 MG PO; +IBUPROFEN PO; +LIPITOR PO; +PRAMIPEXOLE0.125 MG PO; +PROTONIX PO; +ZOFRAN PO
[2016-11-10 12:01] LABS: BASOPHIL% 0.3 % (0-2.5); EOSINOPHIL# 0.2 X10e3 (0-0.7); HEMATOCRIT 27.7 % (38.0-50.0); HEMOGLOBIN 9.2 gm/dL (13.0-16.0); LYMPHOCYTE# 0.7 X10e3 (1.0-3.5); LYMPHOCYTE% 5.9 % (17.0-45.0); MEAN CELL VOLUME 91.8 FL (83-96); MEAN CORPUSCULAR HEMOGLOBIN 30.5 PG (28-34); MEAN CORPUSCULAR HGB CONC 33.2 g/dL (30-36); MEAN PLATELET VOLUME 8.6 FL (6.5-11.5); MONOCYTE# 0.8 X10e3 (0-1.0); MONOCYTE% 7.4 % (3.0-12.0); NEUTROPHIL# 9.4 X10e3 (1.5-7.1); NEUTROPHIL% 84.4 % (40-75); PLATELET COUNT 259 X10e3 (140-420); RED BLOOD COUNT 3.01 X10e (3.90-5.60); RED CELL DISTRIBUTION WIDTH 14.1 % (11.0-15.5); WHITE BLOOD COUNT 11.2 X10e3 (4.0-10.5)
[2016-11-10 12:04] LABS: DIFF IND NO
[2016-11-10 12:49] LABS: ALBUMIN SERUM 3.7 g/dL (3.5-5.0); ALKALINE PHOSPHATASE 60 U/L (32-92); ALT (SGPT) 12 U/L (10-40); AST (SGOT) 12 U/L (10-42); BILIRUBIN,TOTAL 0.4 mg/dL (0.2-2.0); BLOOD UREA NITROGEN 47 mg/dL (9-23); CARBON DIOXIDE 19 mmol/L (22-31); CHLORIDE 105 mmol/L (100-111); CREATININE SERUM 2.9 mg/dL (0.6-1.4); GLOM FILT RATE Estimated 21.6 mL/min (>60); GLUCOSE FASTING 234 mg/dL (70-110); SODIUM 134 mmol/L (135-145)
[2016-11-10] MEDS ORDERED: IBUPROFEN PO (12:51)
[2016-11-10] MEDS ORDERED: GABAPENTIN400 M2 PO (12:51)
[2016-11-10] MEDS ORDERED: LIPITOR PO (12:51)
[2016-11-10] MEDS ORDERED: FLOMAX0.4 M1 PO (12:51)
[2016-11-10] MEDS ORDERED: ZOFRAN PO (12:51)
[2016-11-10] MEDS ORDERED: PRAMIPEXOLE0.125 MG PO (12:52)
[2016-11-10 12:58] LABS: BILIRUBIN, DIRECT <0.1 mg/dL (0.0-0.2); BILIRUBIN,INDIRECT 0.3 mg/dL (0.0-0.9); POTASSIUM 5.6 mmol/L (3.5-5.1)
[2016-11-10 14:07] LABS: URINE SOURCE CLEAN CATCH
[2016-11-10 14:17] LABS: URINE APPEARANCE CLOUDY; URINE BILIRUBIN NEG (NEG); URINE BLOOD 2+ (NEG); URINE COLOR YELLOW; URINE GLUCOSE NEG (NEG); URINE KETONE NEG (NEG); URINE LEUKOCYTE ESTERASE 3+ (NEG); URINE NITRATE POS (NEG); URINE PH 5.5 (5-8); URINE PROTEIN 2+ (NEG); URINE SPECIFIC GRAVITY 1.014 (1.003-1.035); URINE UROBILINOGEN 0.2 MG/DL (NEG)
[2016-11-10 14:20] LABS: CULTURE INDICATED? YES; URINE BACTERIA AUWI 4+ (NEGATIVE); URINE SQUAMOUS EPITHELIAL CELL NONE SEEN /[HPF]; UWBCS1 AUWI INNUM (0-5)
[2016-11-10 14:46] LABS: AMPHETAMINE NEG (NEG); BARBITURATES NEG (NEG); BENZODIAZEPINES NEG (NEG); COCAINE NEG (NEG); MARIJUANA NEG (NEG); OPIATES NEG (NEG); TRICYCLIC ANTIDEPRESSANTS NEG (NEG); U METHADONE POS (NEG)
[2016-11-10 18:06] LABS: %MB 2.4 % (0.0-4.0); MB 2.9 ng/ml
[2016-11-11 04:53] LABS: MEAN CELL VOLUME 91.2 FL (83-96); MEAN CORPUSCULAR HEMOGLOBIN 30.4 PG (28-34); MEAN CORPUSCULAR HGB CONC 33.4 g/dL (30-36); MEAN PLATELET VOLUME 8.8 FL (6.5-11.5); RED BLOOD COUNT 2.63 X10e (3.90-5.60); RED CELL DISTRIBUTION WIDTH 13.8 % (11.0-15.5); WHITE BLOOD COUNT 7.6 X10e3 (4.0-10.5)
[2016-11-11 05:34] LABS: ALBUMIN SERUM 2.8 g/dL (3.5-5.0); BILIRUBIN,TOTAL 0.5 mg/dL (0.2-2.0); BUN/CREATININE RATIO 28.33; CALCIUM SERUM 8.2 mg/dL (8.4-10.2); CREATININE SERUM 1.2 mg/dL (0.6-1.4); GLOM FILT RATE Estimated 62.7 mL/min (>60); MAGNESIUM 1.9 mg/dL (1.6-3.0); PHOSPHOROUS 2.8 mg/dL (2.5-4.6); POTASSIUM 4.6 mmol/L (3.5-5.1); PROTEIN TOTAL SERUM 5.6 g/dL (6.0-8.3)
[2016-11-12 05:19] LABS: HEMATOCRIT 25.5 % (38.0-50.0); HEMOGLOBIN 8.5 gm/dL (13.0-16.0); MEAN CELL VOLUME 90.3 FL (83-96); MEAN CORPUSCULAR HEMOGLOBIN 30.1 PG (28-34); MEAN CORPUSCULAR HGB CONC 33.3 g/dL (30-36); MEAN PLATELET VOLUME 8.4 FL (6.5-11.5); RED BLOOD COUNT 2.83 X10e (3.90-5.60); RED CELL DISTRIBUTION WIDTH 13.4 % (11.0-15.5); WHITE BLOOD COUNT 4.8 X10e3 (4.0-10.5)
[2016-11-12 05:51] LABS: CALCIUM SERUM 8.4 mg/dL (8.4-10.2); CREATININE SERUM 0.8 mg/dL (0.6-1.4); GLOM FILT RATE Estimated 93.1 mL/min (>60); POTASSIUM 3.7 mmol/L (3.5-5.1)
[2016-11-13 06:14] LABS: BASOPHIL% 0.7 % (0-2.5); EOSINOPHIL# 0.2 X10e3 (0-0.7); EOSINOPHIL% 3.5 % (0.0-7.0); HEMOGLOBIN 9.2 gm/dL (13.0-16.0); LYMPHOCYTE% 20.7 % (17.0-45.0); MEAN CELL VOLUME 89.8 FL (83-96); MEAN CORPUSCULAR HEMOGLOBIN 30.7 PG (28-34); MEAN CORPUSCULAR HGB CONC 34.2 g/dL (30-36); MEAN PLATELET VOLUME 7.6 FL (6.5-11.5); MONOCYTE# 0.5 X10e3 (0-1.0); MONOCYTE% 11.1 % (3.0-12.0); PLATELET COUNT 260 X10e3 (140-420); RED CELL DISTRIBUTION WIDTH 13.2 % (11.0-15.5); WHITE BLOOD COUNT 4.7 X10e3 (4.0-10.5)
[2016-11-13 06:22] LABS: DIFF IND NO
[2016-11-13 06:37] LABS: CALCIUM SERUM 8.7 mg/dL (8.4-10.2); CREATININE SERUM 0.6 mg/dL (0.6-1.4); GLOM FILT RATE Estimated 104.8 mL/min (>60); POTASSIUM 3.8 mmol/L (3.5-5.1)
[2016-11-14] MEDS ORDERED: COREG6.25 MG PO (10:21)
[2016-11-14] MEDS ORDERED: OMNICEF300 MG PO (10:22)
[2016-11-14] MEDS ORDERED: NORVASC PO (10:23)
== END 2016-11-14 10:46 | disposition home or self-care (01) | DRG 683 ==
LOC: CED 10:49 → CEDOF 16:19 → C3A PCU 17:58
PROVIDERS: Emergency Medicine; Internal Medicine; Internal Medicine Gastroenterology; Internal Medicine Nephrology
PROC: 0DB98ZX Excision of Duodenum, Via Natural or Artificial Opening Endoscopic, Diagnostic (ICD-10-PCS; principal; 2016-11-13 17:07)
PROC: 0DBM8ZX Excision of Descending Colon, Via Natural or Artificial Opening Endoscopic, Diagnostic (ICD-10-PCS; 2016-11-13 17:07)
DX: N17.9 Acute kidney failure, unspecified (principal); K22.10 Ulcer of esophagus without bleeding; I95.9 Hypotension, unspecified; I10 Essential (primary) hypertension; E11.9 Type 2 diabetes mellitus without complications; D64.9 Anemia, unspecified; N39.0 Urinary tract infection, site not specified; E87.5 Hyperkalemia; M79.605 Pain in left leg; I25.10 Atherosclerotic heart disease of native coronary artery without angina pectoris; Z79.84 Long term (current) use of oral hypoglycemic drugs; N40.1 Benign prostatic hyperplasia with lower urinary tract symptoms; R33.8 Other retention of urine; E78.5 Hyperlipidemia, unspecified; K63.5 Polyp of colon; K64.8 Other hemorrhoids; K57.90 Diverticulosis of intestine, part unspecified, without perforation or abscess without bleeding; Z86.73 Personal history of transient ischemic attack (TIA), and cerebral infarction without residual deficits; Z80.42 Family history of malignant neoplasm of prostate
CPT/HCPCS: 36415; 51701; 76770; 80048; 80053; 80076; 80307; 81003; 82550; 82553; 82947; 83605; 83735; 84100; 85025; 85027; 87040; 87086; 87088; 87186; 88305; 93971; 94760; 96360; 99285; G0480; J0696; J1650; J2250; J3010